=== PATIENT | female | born 1945 | race Caucasian/White ===

== ENCOUNTER 2016-11-11 06:21 | Day surgery (SDC) | payer MEDICARE ==
[~2016-11-11 06:21] MED LIST: Buffered Lidocaine 1% SYRIN* 3 ML/SYR SYRINGE INTRADERM ONE; Dexamethasone IV* 4 MG/ML 1 ML (4 MG) ONE; Famotidine IV* 10 MG/ML 2 ML (20 mg) IV ONE; Famotidine IV* 10 MG/ML 2 ML (20 mg) ONE; Heparin VIAL(*) 5000 UNITS/ML VIAL (FIVE THOUSAND) ONE; Metoclopramide TAB* 10 MG ONE; Metoclopramide TAB* 10 MG PO ONE; Ondansetron INJ* 2 MG/ML VIAL ONE; Scopolamine 1.5 mg* PATCH ONE; ceFAZolin 2 GM PREMIX(*) 2 GM/50 ML BAG IVPB ONE
[2016-11-11] MEDS ORDERED: Bupivacaine 0.25% W/EPI* 50 ML VIAL ONE (07:15)
[2016-11-11] MEDS ORDERED: Lidocaine 2% PF * 5 ML VIAL ONE (07:21)
[2016-11-11] MEDS ORDERED: KETAMINE HCL* 50 MG/ML 10 ML VIAL ONE (07:21)
[2016-11-11] MEDS ORDERED: Ondansetron INJ* 2 MG/ML VIAL ONE (07:21)
[2016-11-11] MEDS ORDERED: Propofol* 10 MG/ML 20 ML BTL IV PUSH ONE (07:21)
[2016-11-11] MEDS ORDERED: fentaNYL* 50 MCG/ML 2 ML VIAL (100 MCG VIAL) ONE ×2 (07:21→10:07)
[2016-11-11] MEDS ORDERED: Midazolam* 1 MG/ML 5 ML VIAL (5 MG) ONE (07:22)
[2016-11-11] MEDS ORDERED: Cisatracurium* 2 MG/ML MDV 5 ML ONE (08:03)
[2016-11-11] MEDS ORDERED: EPHEDrine (Pressors)* 50 MG/ML VIAL ONE (08:14)
[2016-11-11] MEDS ORDERED: Levalbuterol 0.63MG/3ML NEB INH PRN (11:02)
[2016-11-11] MEDS ORDERED: diPHENhydraMINE IV* 50 MG/ML 1 ml VIAL (BENADRYL) IV PRN (11:02)
[2016-11-11] MEDS ORDERED: fentaNYL* 50 MCG/ML 2 ML VIAL (100 MCG VIAL) IV PRN (11:02)
[2016-11-11] MEDS ORDERED: oxyCODONE/Acetamin 5/325 MG* TAB PO PRN (11:02)
[2016-11-11] MEDS ORDERED: HYDROmorphone* 1 MG/ML 1 ML SYR ONE (11:23)
[2016-11-11] MEDS ORDERED: Labetalol IV* 5 MG/ML 20 ML VIAL ONE (12:08)
[2016-11-11] MEDS ORDERED: Levalbuterol 1.25MG/0.5ML NEB ONE (12:46)
[2016-11-11 14:33] VITALS: BP 131/67
== END 2016-11-11 14:55 | disposition home or self-care (01) ==
LOC: OR 06:21
PROVIDERS: ATTEND Plastic Surgery
DX: N65.1 Disproportion of reconstructed breast (principal); L90.5 Scar conditions and fibrosis of skin; Z85.3 Personal history of malignant neoplasm of breast; E11.9 Type 2 diabetes mellitus without complications; Z79.84 Long term (current) use of oral hypoglycemic drugs; J45.909 Unspecified asthma, uncomplicated; G47.33 Obstructive sleep apnea (adult) (pediatric); I34.1 Nonrheumatic mitral (valve) prolapse; I10 Essential (primary) hypertension; E66.9 Obesity, unspecified
CPT/HCPCS: 88302; 88305; A9270-GY; J0690; J1100; J1170; J1644; J2250; J2405; J2704; J3010

== ENCOUNTER 2019-09-03 13:42 | Emergency (ER) | payer MEDICARE ==
[2019-09-03] MEDS ORDERED: Aspirin 81 mg CHEW TAB* 81 MG TAB.CHEW PO ONE (14:03)
[2019-09-03 14:15] LABS: ABS Basophils 0.1 10^3/ul (0-0.2); ABS Eosinophils 0.4 10^3/ul (0-0.6); ABS Lymphocytes 2.3 10^3/ul (1.0-4.8); ABS Monocytes 0.7 10^3/ul (0-0.8); ABS Neutrophils 3.6 10^3/ul (1.5-7.7); Eosinophil % 5.8 %; Hematocrit 39 % (35-47); Hemoglobin 12.9 g/dL (12.0-16.0); Lymphocyte % 32.1 %; Mean Corpuscular HGB Conc 33 g/dL (31-36); Mean Corpuscular Hemoglobin 30 pg (27-31); Mean Corpuscular Volume 91 fL (80-97); Mean Platelet Volume 8.9 fL (7.4-10.4); Platelet Count 218 10^3/uL (150-450); Red Cell Distribution Width 14 % (10-15); White Blood Count 7.2 10^3/uL (3.5-10.8)
[2019-09-03 14:21] LABS: INR 0.96 (0.82-1.09)
[2019-09-03 14:24] LABS: Albumin 3.8 g/dL (3.2-5.2); Albumin/Globulin Ratio 1.2 (1-3); BUN/Creatinine Ratio 28.2 (8-20); Calcium 9.3 mg/dL (8.6-10.3); EGFR African American 78.7 (>60); Globulin 3.3 g/dL (2-4); Magnesium 1.8 mg/dL (1.9-2.7); Potassium 4.3 mmol/L (3.5-5.0); Total Bilirubin 0.4 mg/dL (0.2-1.0); Total Protein 7.1 g/dL (6.4-8.9)
--- NOTE | 2019-09-03 14:27 | ED ---
HPI Chest Pain - HPI Summary HPI Summary: This patient is a 74 y/o female presenting to [facility] c/o intermittent chest pain since 08/30/19. Patient describes intermittent pressure pain on the left upper chest that sometimes radiates to her left axilla. She states her chest pain lasts about 5 seconds at a time and then spontaneously resolves. Patient notes she usually experiences chest pain when she is sitting down watching TV or watching her grandchildren. Denies any fever, chills, nausea, vomiting, shortness of breath, lightheadedness. Patient currently denies any chest pain. Patient reports she has never had chest pain in the past. Patient states she had palpitations for a while in the past but since she stopped drinking coffee her palpitations have resolved. PMHx includes DM, HTN, high cholesterol, aortobifemoral bypass. Home Medications Medication Instructions Recorded Confirmed Type Aspirin 81 mg CHEW TAB* 81 mg PO QAM 05/24/13 11/04/16 History Cyanocobalamin [Vitamin B-12] 1,000 mcg PO QAM 05/24/13 11/11/16 History Fluticasone HFA 110 mcg(NF) 1 - 2 puff PO QAM 05/24/13 11/11/16 History [Flovent HFA 110 mcg(NF)] Losartan Potassium 100 mg PO QAM 05/24/13 11/11/16 History Ubidecarenone [Co Q-10] 200 mg PO QAM 05/24/13 11/11/16 History Metformin HCl [Glucophage Xr] 1,000 mg PO QAM 07/04/15 11/11/16 History Biotin 7,500 mcg PO DAILY 11/05/15 11/11/16 History Cholecalciferol [Vitamin D3] 2,000 unit PO QAM 05/15/16 11/11/16 History Fishoil Smoothie 1,800 mg PO QAM 05/15/16 11/11/16 History Ascorbic Acid TAB* [Vitamin C 500 mg PO QAM 11/04/16 11/11/16 History TAB*] Iron 45 mg PO QAM 11/04/16 11/11/16 History Multiple Vitamins W/ Minerals 1 chw PO QAM 11/04/16 11/11/16 History [Multivitamin Adult] Sulfamethox/Trimethoprim DS* 1 tab PO DAILY 11/04/16 11/11/16 History [Bactrim DS 800/160 TAB*] - History of Current Complaint Chief Complaint: EDChestPainROMI Time Seen by Provider: 09/03/19 14:02 Hx Obtained From: Patient Onset/Duration: Started Days Ago, Still Present Timing: Lasting Days Current Severity: None Pain Intensity: 0 Pain Scale Used: 0-10 Numeric Chest Pain Location: Left Anterior Chest Pain Radiates: Yes Chest Pain Radiates To:: Other - left axilla Character: Pressure/Squeezing - Pressure Aggravating Factor(s): Nothing Alleviating Factor(s): Nothing Associated Signs and Symptoms: Positive: Chest Pain. Negative: Shortness of Breath, Fever, Chills, Lightheadedness, Nausea, Vomiting - Additional Pertinent History Primary Care Physician: RIA - Allergy/Home Medications Allergies/Adverse Reactions: Allergies Allergy/AdvReac Type Severity Reaction Status Date / Time amlodipine Allergy Severe SOB, EDEMA Verified 04/22/19 13:45 IN ANKLES & FEEL FLUSHED diltiazem Allergy Severe SOB,THROAT Verified 04/22/19 13:45 TIGHTENING & FLUSHED ezetimibe Allergy Severe MUSCLE AND Verified 04/22/19 13:45 STOMACH PAIN & VERY FATIGUED doxycycline Allergy Intermediate RASH, Verified 04/22/19 13:45 STOMACH CRAMPS & NAUSEA lisinopril Allergy Intermediate Coughing Verified 04/22/19 13:45 CHLOTHALIDONE Allergy Intermediate NAUSEA AND Uncoded 04/22/19 13:45 LIGHT HEADED Home Medications: Home Medications Aspirin 81 mg CHEW TAB* 81 mg PO QAM 05/24/13 [History Confirmed 11/04/16] Cyanocobalamin [Vitamin B-12] 1,000 mcg PO QAM 05/24/13 [History Confirmed 11/11] Fluticasone HFA 110 mcg(NF) [Flovent HFA 110 mcg(NF)] 1 - 2 puff PO QAM [History Confirmed 11/11/16] Losartan Potassium 100 mg PO QAM 05/24/13 [History Confirmed 11/11/16] Ubidecarenone [Co Q-10] 200 mg PO QAM 05/24/13 [History Confirmed 11/11/16] Metformin HCl [Glucophage Xr] 1,000 mg PO QAM 07/04/15 [History Confirmed ] Biotin 7,500 mcg PO DAILY 11/05/15 [History Confirmed 11/11/16] Cholecalciferol [Vitamin D3] 2,000 unit PO QAM 05/15/16 [History Confirmed 11/11] Fishoil Smoothie 1,800 mg PO QAM 05/15/16 [History Confirmed 11/11/16] Ascorbic Acid TAB* [Vitamin C TAB*] 500 mg PO QAM 11/04/16 [History Confirmed 11/11/16] Iron 45 mg PO QAM 11/04/16 [History Confirmed 11/11/16] Multiple Vitamins W/ Minerals [Multivitamin Adult] 1 chw PO QAM 11/04/16 [ History Confirmed 11/11/16] Sulfamethox/Trimethoprim DS* [Bactrim DS 800/160 TAB*] 1 tab PO DAILY 11/04/16 [ History Confirmed 11/11/16] PMH/Surg Hx/FS Hx/Imm Hx Endocrine/Hematology History: Reports: Hx Diabetes, Hx Thyroid Disease - SURGERY TOOK 1/2 THYROID ON RIGHT Cardiovascular History: Reports: Hx Coronary Artery Disease - CHOLESTEROL CONTROL WITH MEDS, Hx Hypertension - ON MEDS, Hx Peripheral Vascular Disease, Other Cardiovascular Problems/Disorders - 2000 [facility]-BI-FEM [facility] WITH GRAFT / DEMOGRAPHIC ANALYST - DR. MAX Denies: Hx Congestive Heart Failure, Hx Pacemaker/ICD Respiratory History: Reports: Hx Asthma - INHALER, Hx Sleep Apnea - HASN'T USED CPAP IN 2-3 MONTHS GI History: Reports: Hx Gastroesophageal Reflux Disease - R/T GALLBLADDER, Hx Hiatal Hernia - HX OF NO PROBLEMS History: Denies: Hx Dialysis, Hx Renal Disease Musculoskeletal History: Reports: Hx Arthritis - GENERALIZED, Hx Bursitis - HX OF NONE NOW, Hx Tendonitis - HX OF NONE NOW Sensory History: Reports: Hx Contacts or Glasses Denies: Hx Hearing Aid Opthamlomology History: Reports: Hx Contacts or Glasses Psychiatric History: Denies: Hx Panic Disorder - Cancer History Cancer Type, Location and Year: Lt BREAST -LUMPECTOMY 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 LEFT BREAST SURGERY 06/20 WITH BREAST DUCTS. HYSTERECTOMY 1986, SINUS SURGERY 1994. PARTIAL THYROIDECTOMY 1996. LEFT HAND MIDDLE FINGER MUCOUS CYST REMOVED 2013,. RIGHT HAND TRIGGER FINGER 2004, LEFT HAND TRIGGER FINGER 2009 Hx Anesthesia Reactions: No Infectious Disease History: No Infectious Disease History: Denies: Traveled Outside the [place] in Last 30 Days - Family History Family History: Father with fatal CT at age 68. - Social History Alcohol Use: Occasionally Alcohol Amount: BEER IN SUMMER Substance Use Type: Reports: None Smoking Status (MU): Former Smoker Type: Cigarettes Amount Used/How Often: 1 PPD FOR ABOUT 30 YEARS Length of Time of Smoking/Using Tobacco: 30 YEARS Have You Smoked in the Last Year: No Review of Systems Negative: Fever, Chills Positive: Chest Pain Negative: Shortness Of Breath Negative: Vomiting, Nausea Neurological/Mental Status: Other - NEGATIVE: lightheadedness All Other Systems Reviewed And Are Negative: Yes Physical Exam - Summary Physical Exam Summary: VITAL SIGNS: Reviewed. GENERAL: Patient is a well-developed and nourished female who is lying comfortable in the stretcher. Patient is not in any acute respiratory distress. HEAD AND FACE: No signs of trauma. No ecchymosis, hematomas or skull depressions. No sinus tenderness. EYES: PERRLA, EOMI x 2, No injected conjunctiva, no nystagmus. EARS: Hearing grossly intact. Ear canals and tympanic membranes are within normal limits. MOUTH: Oropharynx within normal limits. NECK: Supple, trachea is midline, no adenopathy, no JVD, no carotid bruit, no c- spine tenderness, neck with full ROM. CHEST: Symmetric, reproducible upper chest pain LUNGS: Clear to auscultation bilaterally. No wheezing or crackles. CVS: Regular rate and rhythm, S1 and S2 present, no murmurs or gallops appreciated. ABDOMEN: Soft, non-tender. No signs of distention. No rebound no guarding, and no masses palpated. Bowel sounds are normal. EXTREMITIES: FROM in all major joints, no edema, no cyanosis or clubbing. NEURO: Alert and oriented x 3. No acute neurological deficits. Speech is normal and follows commands. SKIN: Dry and warm Triage Information Reviewed: Yes Vital Signs On Initial Exam: Initial Vitals Temp Pulse Resp BP Pulse Ox 97.9 F 75 19 148/94 96 09/03/19 13:50 09/03/19 13:50 09/03/19 13:50 09/03/19 13:50 09/03/19 13:50 Vital Signs Reviewed: Yes Procedures - Sedation Patient Received Moderate/Deep Sedation with Procedure: No Diagnostics - Vital Signs Vital Signs Temp Pulse Resp BP Pulse Ox 09/03/19 13:50 97.9 F 75 19 148/94 96 - Laboratory Lab Results: Lab Results 09/03/19 Range/Units 13:56 WBC 7.2 (3.5-10.8) 10^3/uL RBC 4.30 (3.70-4.87) 10^6 /uL Hgb 12.9 (12.0-16.0) g/dL Hct 39 (35-47) % MCV 91 (80-97) fL MCH 30 (27-31) pg MCHC 33 (31-36) g/dL RDW 14 (10-15) % Plt Count 218 (150-450) 10^3/uL MPV 8.9 (7.4-10.4) fL Neut % (Auto) 50.2 % Lymph % (Auto) 32.1 % [place] % (Auto) 10.3 % Eos % (Auto) 5.8 % Baso % (Auto) 1.6 % Absolute Neuts (auto) 3.6 (1.5-7.7) 10^3/ul Absolute Lymphs (auto) 2.3 (1.0-4.8) 10^3/ul Absolute Monos (auto) 0.7 (0-0.8) 10^3/ul Absolute Eos (auto) 0.4 (0-0.6) 10^3/ul Absolute Basos (auto) 0.1 (0-0.2) 10^3/ul Absolute Nucleated RBC 0.0 10^3/ul Nucleated RBC % 0.0 Result Diagrams: 09/03/19 13:56 09/03/19 13:56 Lab Statement: Any lab studies that have been ordered have been reviewed, and results considered in the medical decision making process. - Radiology Chest XR Radiology Interpretation Completed By: Radiologist Summary of Radiographic Findings: IMPRESSION: No radiographic evidence for acute cardiopulmonary abnormality on this portable chest x-ray. Dr. Suarez has reviewed this report. - EKG 13:45 Cardiac Rate: NL - at 87 bpm EKG Rhythm: Sinus Rhythm EKG Comparison: No Significant Change - similar to prior on 06/20/16. Summary of EKG Findings: EKG at 1345 shows normal sinus rhythm at a rate of [address] elevations. RBBB. Similar to prior EKG on 06/20/16. This EKG was interpreted and reviewed by ED physician. Chest Pain Course/Dx - Course Assessment/Plan: This patient is a 74 y/o female presenting to [facility] c/o intermittent chest pain since 08/30/19. Patient describes intermittent pressure pain on the left upper chest. She states her chest pain lasts about 5 seconds at a time and then spontaneously resolves. Patient notes she usually experiences chest pain when she is sitting down watching TV or watching her grandchildren. Denies any fever, chills, nausea, vomiting, shortness of breath, lightheadedness. Patient currently denies any chest pain. Patient reports she has never had chest pain in the past. Patient states she had palpitations for a while in the past but since she stopped drinking coffee her palpitations have resolved. Patient has a reproducible pain in the upper chest and axilla. PMHx includes DM, HTN, high cholesterol, aortobifemoral bypass. Blood test results without any significant abnormality except for glucose of 114, magnesium 1.8. Troponin is 0.00. EKG shows a normal sinus rhythm without any ST elevation. Positive right bundle branch block. EKG is similar to 06/20/16. Heart score is equal to 5. At this point the patient continues to be asymptomatic. I discussed the case with Dr. Mcdaniel, hospitalist, and he came and assessed the patient. He discussed the case with Dr. Max the patients conference assistant and he recommended for the patient to be discharged home with follow-up from him on Thursday. The patient is comfortable with the plan. Therefore the patient will be discharged home with follow from Dr. Max. Patient is hemodynamically stable, alert and oriented 3. - Chest Pain Differential Diagnosis/HQI/PQRI: Acute CT, ACS, Angina, CHF, Chest Wall, GI Disease, Lower Respiratory Infection, Pulmonary Edema - Diagnoses Provider Diagnoses: Atypical chest pain - Provider Notifications Discussed Care Of Patient With: Gerardo Mcdaniel Time Discussed With Above Provider: 16:17 Instructed by Provider To: Other - Discussed the case with Dr. Mcdaniel, hospitalist, who will come and consult for the patient. [17:49] Dr. Mcdaniel, hospitalist, reports he spoke with Dr. Max (conference assistant) and recommended patient can be discharged home with follow up at his office. Discharge ED - Sign-Out/Discharge Documenting (check all that apply): Patient Departure - Discharge home - Discharge Plan Condition: Stable Disposition: HOME Patient Education Materials: Chest Pain (ED) Referrals: Milagros Tena MD [Primary Care Provider] - Gordon Max MD [Medical Doctor] - Additional Instructions: FOLLOW UP WITH DR. MAX, DEMOGRAPHIC ANALYST. Dr. Max will get in touch with you on 09/05/19. FOLLOW UP WITH YOUR PRIMARY CARE PROVIDER IN 2-3 DAYS. RETURN TO THE EMERGENCY DEPARTMENT FOR ANY WORSENING OR NEW SYMPTOMS. - Billing Disposition and Condition Condition: STABLE Disposition: Home - Attestation Statements Document Initiated by Gildardo: Yes Documenting Scribe: Ivette Reynolds Provider For Whom Gildardo is Documenting (Include Credential): Pradeep Suarez MD Scribe Attestation: I, Ivette Reynolds, scribed for Praedep Suarez MD on 09/03/19 at 2139. Scribe Documentation Reviewed: Yes Provider Attestation: The documentation as recorded by the Ivette ash accurately reflects the service I personally performed and the decisions made by me, Pradeep Suarez MD Status of Scribe Document: Viewed
[2019-09-03 14:28] LABS: CKMB ng/mL 1.2 ng/mL (0.6-6.3)
[2019-09-03 14:39] LABS: TSH (Thyroid Stimulating Horm) 1.11 mcIU/mL (0.34-5.60)
[2019-09-03] MEDS ORDERED: Metoprolol Tartrate TAB* 25 MG PO ONE (17:48)
[2019-09-03 18:00] VITALS: BP 162/99
--- NOTE | 2019-09-03 19:19 | CONSULT ---
Subjective Date of Service: 09/03/19 Interval History: This is a 74 y/o female with history pertinent history of HTN, DM presented to the ER with intermittent chest pain started 5 days ago after she baby sat her grandchild. She started having intermittent left side chest pain radiate to the axilla, sharp, sudden and feels like sharp, stabbing and shooting pain. No diaphoresis and no heaviness. It only last seconds and resolves spontaneously. It is not brought on by walking or climbing stairs. Denies any fever, chills, nausea, vomiting, shortness of breath, lightheadedness. Patient currently denies any chest pain. Her Heart Score was 4. Family History: Unchanged from Admission - Reviewed non contributory Social History: Unchanged from Admission - No ETOH, No tobacco use, No illicit drug use Past Medical History: Unchanged from Admission - HTN, h/o Left breast cancer, DM -II, Obesity, Asthma, COPD, RANDALL, Aortfemoral bypass, Subtotal hysterectomy, Review of Systems - Measurements Intake and Output: Intake and Output Last 24 Hours 09/01/19 09/02/19 09/03/19 09/04/19 06:59 06:59 06:59 06:59 Weight 250 lb - Review of Systems Constitutional Symptoms: Negative: Weight Loss, Fatigue, Fever Dermatology: Negative: Normal, Rash Eyes: Positive: Normal Negative: Change in Vision Thyroid: Negative: Weight Loss, Weight Gain Pulmonary: Positive: Normal Negative: Wheezing Cardiology: Positive: Chest Pain Negative: Shortness of Breath, Palpitations, Swelling of Ankles, Syncope, Claudication Gastroenterology: Negative: Abdominal Pain, Nausea, Vomiting Musculoskeletal: Positive: Joint Pain, Low Back Pain Endocrinology: Positive: Diabetes Mellitus Hematologic/Lymphatic: Negative: Anemia, Easy Bruising Neurology: Negative: Headache, Migraines, Change in Vision Psychiatry: Negative: Depression, Anxiety, Depressed Mood Objective Active Medications: Home Medications Aspirin 81 mg CHEW TAB* 81 mg PO QAM 05/24/13 [History Confirmed 11/04/16] Cyanocobalamin [Vitamin B-12] 1,000 mcg PO QAM 05/24/13 [History Confirmed 11/11] Fluticasone HFA 110 mcg(NF) [Flovent HFA 110 mcg(NF)] 1 - 2 puff PO QAM [History Confirmed 11/11/16] Losartan Potassium 100 mg PO QAM 05/24/13 [History Confirmed 11/11/16] Ubidecarenone [Co Q-10] 200 mg PO QAM 05/24/13 [History Confirmed 11/11/16] Metformin HCl [Glucophage Xr] 1,000 mg PO QAM 07/04/15 [History Confirmed ] Biotin 7,500 mcg PO DAILY 11/05/15 [History Confirmed 11/11/16] Cholecalciferol [Vitamin D3] 2,000 unit PO QAM 05/15/16 [History Confirmed 11/11] Fishoil Smoothie 1,800 mg PO QAM 05/15/16 [History Confirmed 11/11/16] Ascorbic Acid TAB* [Vitamin C TAB*] 500 mg PO QAM 11/04/16 [History Confirmed 11/11/16] Iron 45 mg PO QAM 11/04/16 [History Confirmed 11/11/16] Multiple Vitamins W/ Minerals [Multivitamin Adult] 1 chw PO QAM 11/04/16 [ History Confirmed 11/11/16] Sulfamethox/Trimethoprim DS* [Bactrim DS 800/160 TAB*] 1 tab PO DAILY 11/04/16 [ History Confirmed 11/11/16] Vital Signs - 8 hr 09/03/19 09/03/19 09/03/19 13:50 14:03 14:15 Temperature 97.9 F Pulse Rate 75 77 88 Respiratory 19 Rate Blood Pressure 148/94 164/79 (mmHg) O2 Sat by Pulse 96 93 94 Oximetry 09/03/19 09/03/19 09/03/19 14:35 15:00 15:05 Temperature Pulse Rate 88 67 66 Respiratory 17 16 18 Rate Blood Pressure 158/68 139/67 (mmHg) O2 Sat by Pulse 93 95 94 Oximetry 09/03/19 09/03/19 09/03/19 15:35 16:00 16:05 Temperature Pulse Rate 64 68 74 Respiratory 17 18 17 Rate Blood Pressure 136/65 156/81 (mmHg) O2 Sat by Pulse 95 95 94 Oximetry 09/03/19 09/03/19 09/03/19 16:35 17:00 17:06 Temperature Pulse Rate 74 71 77 Respiratory 16 16 18 Rate Blood Pressure 143/83 159/76 (mmHg) O2 Sat by Pulse 93 96 96 Oximetry 09/03/19 09/03/19 17:35 18:00 Temperature 97.7 F Pulse Rate 71 76 Respiratory 18 15 Rate Blood Pressure 162/99 162/99 (mmHg) O2 Sat by Pulse 95 93 Oximetry Oxygen Devices in Use Now: None Appearance: awake, alert no acute distress Eyes: No Scleral Icterus, - - EOMI Ears/Nose/Mouth/Throat: NL Teeth, Lips, Gums, Clear Oropharnyx, Mucous Membranes Moist Neck: NL Appearance and Movements; NL JVP, Trachea Midline Respiratory: Symmetrical Chest Expansion and Respiratory Effort, Clear to Auscultation, - Cardiovascular: NL Sounds; No Murmurs; No JVD, RRR, No Edema Abdominal: NL Sounds; No Tenderness; No Distention Extremities: No Edema Skin: No Rash or Ulcers Neurological: Alert and Oriented x 3, NL Muscle Strength and Tone Result Diagrams: 09/03/19 13:56 09/03/19 13:56 Additional Lab and Data: Lab Results 09/03/19 Range/Units 13:56 WBC 7.2 (3.5-10.8) 10^3/uL RBC 4.30 (3.70-4.87) 10^6 /uL Hgb 12.9 (12.0-16.0) g/dL Hct 39 (35-47) % MCV 91 (80-97) fL MCH 30 (27-31) pg MCHC 33 (31-36) g/dL RDW 14 (10-15) % Plt Count 218 (150-450) 10^3/uL MPV 8.9 (7.4-10.4) fL Neut % (Auto) 50.2 % Lymph % (Auto) 32.1 % [place] % (Auto) 10.3 % Eos % (Auto) 5.8 % Baso % (Auto) 1.6 % Absolute Neuts (auto) 3.6 (1.5-7.7) 10^3/ul Absolute Lymphs (auto) 2.3 (1.0-4.8) 10^3/ul Absolute Monos (auto) 0.7 (0-0.8) 10^3/ul Absolute Eos (auto) 0.4 (0-0.6) 10^3/ul Absolute Basos (auto) 0.1 (0-0.2) 10^3/ul Absolute Nucleated RBC 0.0 10^3/ul Nucleated RBC % 0.0 Assessment/Plan - Billing Plan By Medical Problem: 74 y/o female present to the ER for atypical chest pain that started on Thursday (5 days before presenting to the ER) associated with her baby sitting her grandchild. 1. Chest pain - Atypical. Troponin negative x 2 sets (3 hrs apart) - EKG shows NSR rate 87 bpm; KS 155; QRS 158; QTc 494 ms, RBBB, LAD -46 degree and LAHB. When compared to 06/20/2016 QTc slighly prolonged now from 456 to 494 otherwise no other significant changes were noted. - I don't think the patient will benefit from staying in the hospital for 48 hrs in order to do her non invasive cardiac testing on Thursday - She will benefit from outpatient cardiac testing but she does not need to be inpatient. - I discussed with her office manager receptionist her ER course and agreed to arrange for stress test outpatient. - I relayed by conversation to the ER attending and the patient regarding going home and follow up with Dr. Pickering office as outpatient for stress test. cc: Dr. Gordon Pickering
== END 2019-09-03 18:00 | disposition home or self-care (01) ==
LOC: ED 13:42
DX: R07.89 Other chest pain (principal); E11.9 Type 2 diabetes mellitus without complications; I45.10 Unspecified right bundle-branch block; I10 Essential (primary) hypertension; E66.9 Obesity, unspecified; E78.00 Pure hypercholesterolemia, unspecified; E03.9 Hypothyroidism, unspecified; I25.10 Atherosclerotic heart disease of native coronary artery without angina pectoris; K21.9 Gastro-esophageal reflux disease without esophagitis; Z95.5 Presence of coronary angioplasty implant and graft; Z79.899 Other long term (current) drug therapy; Z79.82 Long term (current) use of aspirin; Z87.891 Personal history of nicotine dependence
CPT/HCPCS: 36415; 71045; 80053; 82550; 82553; 83735; 83880; 84443; 84484; 85025; 85610; 85730; 93005; 99283; A9270-GY